=== PATIENT | male | born 1965 | race Caucasian/White ===

== ENCOUNTER → 2017-06-08 | Outpatient (CLI) | payer BC ==
[~2017-06-08] VITALS: Ht 182.9 cm; Wt 77.5 kg
[~2017-06-08] MED LIST: IPRATROPIUM BROM3 M1 IH; MULTI VITAMINS1 TAB PO; NORCO 325 MG-7.1 TAB PO; PREDNISONE20 MG PO; PRIL40 PO; PRILOSEC 20MG20 MG PO
[2017-06-08 12:51] VITALS: BP 160/86; PULSE 64
[2017-06-08 14:15] VITALS: BP 169/79; PULSE 58
== END ==
LOC: COL.RAD 12:32
DX: M48.02 Spinal stenosis, cervical region (principal)
CPT/HCPCS: J1100

== ENCOUNTER → 2018-04-21 | Outpatient (REF) | LOC: ZLAB.WCH 18:16 | DX: Z01.89 Encounter for other specified special examinations (principal) ==